=== PATIENT | female | born 1990 | race Caucasian/White ===

== ENCOUNTER → 2018-01-20 | Outpatient (REF) | payer OTHER | LOC: M SFHCWAGY 15:19 | DX: Z12.4 Encounter for screening for malignant neoplasm of cervix (principal) ==

== ENCOUNTER → 2018-06-21 | Outpatient (REF) | payer OTHER ==
[2018-06-21 16:27] LABS: FREE T4 1.02 NG/DL (0.76-1.46); THYROID STIMULATING HORMONE 2.94 uIU/ML (0.358-3.740)
[2018-06-21 16:28] LABS: LUTEINIZING HORMONE 8.6 mIU/mL
== END ==
LOC: M SFHCWAGY 14:28
PROVIDERS: ATTEND Nurse Practitioner Women's Health
DX: N91.2 Amenorrhea, unspecified (principal)

== ENCOUNTER → 2018-06-27 | Outpatient (CLI) | payer OTHER ==
--- NOTE | 2018-06-28 04:41 | REP ---
Clinical: Amenorrhea . Technique: Transabdominal pelvic ultrasound followed by transvaginal examination for better evaluation of the endometrium and adnexa. Findings: Bladder is unremarkable and measures 14.9 x 8.5 x 9.7 cm . Normal anteverted uterus measures 8.3 x 3.5 x 4.7 cm . The endometrial complex measures 9.0 mm thickness. No discrete uterine or endometrial abnormalities are appreciated. Bilateral ovaries are normal in appearance. Right ovary measures 2.9 x 2.0 x 1.8 cm ;Left ovary measures 3.5 x 2.0 x 2.7 cm . No pelvic fluid or adnexal mass lesion . Impression: 1. Normal pelvic ultrasound for
== END ==
LOC: M WHC 14:59
PROVIDERS: ATTEND Nurse Practitioner Women's Health
DX: N91.2 Amenorrhea, unspecified (principal)

== ENCOUNTER → 2018-08-08 | Outpatient (REF) | payer OTHER ==
[2018-08-08 16:37] LABS: ESTRADIOL 72.5 PG/ML; PROLACTIN 7.8 NG/ML
[2018-08-11 00:06] LABS: DEHYDROEPIANDROSTERONE SULFATE 200.7 ug/dL (84.8-378.0); TESTOSTERONE FREE (DIRECT) 1.9 pg/mL (0.0-4.2)
== END ==
LOC: M SFHCWAGY 12:30
PROVIDERS: ATTEND Nurse Practitioner Women's Health
DX: N91.1 Secondary amenorrhea (principal)

== ENCOUNTER → 2018-11-30 | Outpatient (CLI) | payer OTHER | LOC: M SMT 13:18 | PROVIDERS: ATTEND Obstetrics & Gynecology | DX: E28.2 Polycystic ovarian syndrome (principal) ==

== ENCOUNTER → 2019-02-04 | Outpatient (CLI) | payer OTHER | LOC: M WUC 09:21 | PROVIDERS: ATTEND Obstetrics & Gynecology | DX: N91.1 Secondary amenorrhea (principal) ==

== ENCOUNTER → 2019-04-27 | Outpatient (CLI) | payer OTHER | LOC: M WUC 16:39 | PROVIDERS: ATTEND Obstetrics & Gynecology | DX: O36.80X1 Pregnancy with inconclusive fetal viability, fetus 1 (principal) ==

== ENCOUNTER → 2019-04-29 | Outpatient (CLI) | payer OTHER | LOC: M WUC 16:06 | PROVIDERS: ATTEND Obstetrics & Gynecology | DX: O36.80X1 Pregnancy with inconclusive fetal viability, fetus 1 (principal); Z3A.00 Weeks of gestation of pregnancy not specified ==

== ENCOUNTER → 2019-05-16 | Outpatient (CLI) | payer OTHER | LOC: M WHC 11:26 | PROVIDERS: ATTEND Obstetrics & Gynecology | DX: Z53.9 Procedure and treatment not carried out, unspecified reason (principal); O36.80X0 Pregnancy with inconclusive fetal viability, not applicable or unspecified; Z3A.00 Weeks of gestation of pregnancy not specified ==

== ENCOUNTER → 2019-05-24 | Outpatient (CLI) | payer OTHER ==
[2019-05-24 18:00] LABS: BASO % 0.4 % (0.0-1.0); EOS # 0.1 10^3/uL (0.0-0.5); EOS % 0.8 % (0.0-3.0); HEMATOCRIT 40.2 % (36.0-47.0); HEMOGLOBIN 13.2 g/dl (12.0-15.5); LYMPH % 17.8 % (24.0-44.0); MEAN CORPUSCULAR HEMOGLOBIN 29.3 pg (27.0-33.0); MEAN CORPUSCULAR HGB CONC 32.8 g/dl (32.0-36.5); MEAN CORPUSCULAR VOLUME 89.1 fl (80.0-96.0); MONO # 0.8 10^3/uL (0.0-0.8); MONO % 6.9 % (0.0-5.0); NEUTROPHILS % 72.4 % (36.0-66.0); PLATELET COUNT, AUTOMATED 236 10^3/uL (150-450); RED BLOOD COUNT 4.51 10^6/uL (4.00-5.40); WHITE BLOOD COUNT 11.1 10^3/uL (4.0-10.0)
[2019-05-24 20:30] LABS: CHLAMYDIA DNA AMPLIFICATION NEGATIVE (NEGATIVE); GC DNA AMPLIFICATION NEGATIVE (NEGATIVE)
[2019-05-25 10:16] LABS: HEPATITIS C VIRUS ABY INDEX < 0.0 INDEX (<0.8); HIV 1&2 SCREEN CENTAUR NEGATIVE (NEGATIVE); RUBELLA IgG QUALITATIVE SUSCEPTIBLE (IMMUNE)
== END ==
LOC: M PLALAB 15:32
PROVIDERS: ATTEND Advanced Practice Midwife
DX: Z34.01 Encounter for supervision of normal first pregnancy, first trimester (principal)

== ENCOUNTER → 2019-06-07 | Outpatient (CLI) | payer OTHER ==
--- NOTE | 2019-06-07 16:58 | REP ---
Clinical: Anatomical evaluation. Comparison: None . Findings: Examination demonstrates a single live intrauterine in transverse (head to maternal left) presentation. motion is identified by technologist. Placenta is noted fundal and grade zero without evidence for placenta previa or abruption. Amniotic fluid volume is normal. Cervix measures 3.1 cm in length and appears closed. No evidence for nuchal cord. Gestational age by current measurements 20 weeks 1 day with ANA PAULA 10/24/2019 . FHR equals 160 beats per minute. BPD 4.7 cm 20 weeks 1 day HC 17.0 cm 19 weeks 4 days AC 15.1 cm 20 weeks 2 days FL 3.0 cm 19 weeks 2 days HL 3.1 cm 20 weeks 2 days HC/AC ratio 1.13 Estimated weight 316 grams ( 35th percentile). Anatomical assessment demonstrates normal structures including cranium, choroid plexus, cavum, cerebellum/posterior fossa, diaphragm, stomach, cord insertion/three-vessel cord, kidneys/bladder, and extremities. Limited evaluation of the facial features, heart/ventricular outflow tracts, and spine. Impression: 1. Single live intrauterine demonstrating appropriate estimated weight. 2. Anatomical limitations as noted above may warrant reevaluation and follow-up. No gross abnormality identified.
== END ==
LOC: M WHC 14:18
PROVIDERS: ATTEND Advanced Practice Midwife
DX: Z34.02 Encounter for supervision of normal first pregnancy, second trimester (principal); Z3A.00 Weeks of gestation of pregnancy not specified

== ENCOUNTER → 2019-06-28 | Outpatient (REF) | payer OTHER ==
[2019-06-28 12:29] LABS: HEMATOCRIT 39.2 % (36.0-47.0); HEMOGLOBIN 12.5 g/dl (12.0-15.5); MEAN CORPUSCULAR HEMOGLOBIN 29.3 pg (27.0-33.0); MEAN CORPUSCULAR HGB CONC 31.9 g/dl (32.0-36.5); PLATELET COUNT, AUTOMATED 207 10^3/uL (150-450); RED BLOOD COUNT 4.26 10^6/uL (4.00-5.40)
== END ==
LOC: M PLALAB 08:51
PROVIDERS: ATTEND Advanced Practice Midwife
DX: Z34.02 Encounter for supervision of normal first pregnancy, second trimester (principal)

== ENCOUNTER → 2019-06-28 | Outpatient (CLI) | payer OTHER ==
--- NOTE | 2019-06-28 10:53 | REP ---
OBSTETRIC SONOGRAPHY: HISTORY: Supervision of followup anatomy. Comparison obstetric sonography, June 07, 2019. FINDINGS: Scanning through the gravid uterus demonstrates a viable single intrauterine gestation in a cephalic lie. motion is observed, and heart rate is recorded at 149 beats per minute. The placenta is posterior, grade 1 without evidence of previa. Amniotic fluid is subjectively normal. Closed cervical length measured transabdominally is 3.4 cm. There has been appropriate interval growth. No abnormality is noted. Four-chamber heart and left ventricular and right ventricular cardiac outflow tract views are still less than optimally seen. The following additional anatomic structures are identified and felt to be unremarkable today: cranium, cerebellum and posterior fossa, nuchal fold, face and profile, diaphragm, left-sided stomach, abdominal wall cord insertion, three-vessel cord, kidneys and bladder, spine. BIOMETRY CHART: BPD 5.8 cm = 23 weeks 5 days Head circumference 21.1 cm = 23 weeks 1 day Abdominal circumference 18.8 cm = 23 weeks 4 days Femur length 4.1 cm = 23 weeks 2 days Humeral length 3.7 cm = 23 weeks 1 day HC/AC ratio normal 1.12 Cephalic index normal 0.77 Estimated weight 589 grams, 1 pound 4 ounces, 51st percentile for 23 weeks 1 day. IMPRESSION: Viable single intrauterine gestation at 23 weeks 0 days by today's composite sonographic criteria. Expected gestational age estimate based on prior sonography is 23 weeks 1 day. ANA PAULA by prior sonography, October 24, 2019. heart views still less than optimally achieved. There is evidence of appropriate interval growth.
== END ==
LOC: M WHC 07:56
PROVIDERS: ATTEND Advanced Practice Midwife
DX: Z34.02 Encounter for supervision of normal first pregnancy, second trimester (principal)

== ENCOUNTER → 2019-07-10 | Outpatient (CLI) | payer OTHER | LOC: M LAB 06:53 | PROVIDERS: ATTEND Obstetrics & Gynecology | DX: R73.02 Impaired glucose tolerance (oral) (principal) ==

== ENCOUNTER → 2019-07-18 | Outpatient (CLI) | payer OTHER | LOC: M WHC 13:38 | PROVIDERS: ATTEND Obstetrics & Gynecology | DX: Z34.02 Encounter for supervision of normal first pregnancy, second trimester (principal); Z53.9 Procedure and treatment not carried out, unspecified reason; Z3A.00 Weeks of gestation of pregnancy not specified ==

== ENCOUNTER → 2019-07-31 | Outpatient (CLI) | payer OTHER ==
--- NOTE | 2019-07-31 11:15 | REP ---
OB ULTRASOUND: Real-time sonographic evaluation of the gravid uterus performed. There is a single living intrauterine gestation. The estimated gestational age is 27 weeks 6 days with EDC 10/24/2019. Today's measurements indicate appropriate growth. Biometry and Growth: BPD 74 mm = 29 weeks 4 days, 84th percentile HC 262 mm = 28 weeks 4 days, 64th percentile AC 249 mm = 29 weeks 1 day, 74th percentile FL 51 mm = 27 weeks 2 days, 38th percentile HC/AC ratio 1.06 with normal range of 1.0 to 1.18. Estimated weight 1233 grams, 56th percentile. Visualized anatomy today includes the upper lip, four-chamber heart, stomach, three-vessel cord, kidneys, bladder and spine, which are all grossly unremarkable. Spine is only visualized sagittally. Ventricular outflow tracts are not well seen due to position. Cervical length: Closed and measures 3.9 cm in length. heart rate: 146 beats per minute. position: position is vertex. Placenta: Placenta is posterior and grade 1 with no previa or abruption. Amniotic fluid: Appears within normal limits.
== END ==
LOC: M WHC 09:27
PROVIDERS: ATTEND Obstetrics & Gynecology
DX: Z34.02 Encounter for supervision of normal first pregnancy, second trimester (principal); Z3A.27 27 weeks gestation of pregnancy

== ENCOUNTER → 2019-08-22 | Outpatient (CLI) | payer OTHER | LOC: M WHC 07:39 | PROVIDERS: ATTEND Advanced Practice Midwife | DX: Z34.03 Encounter for supervision of normal first pregnancy, third trimester (principal); Z53.9 Procedure and treatment not carried out, unspecified reason ==

== ENCOUNTER → 2019-08-28 | Outpatient (CLI) | payer OTHER ==
--- NOTE | 2019-08-29 07:21 | REP ---
Clinical: Anatomical evaluation. Comparison: 07/31/2019 . Findings: Examination demonstrates a single live intrauterine in cephalic presentation. motion is identified by technologist. Placenta is noted posterior and grade I without evidence for placenta previa or abruption. Amniotic fluid volume is normal. No evidence for nuchal cord. Gestational age by LMP 31 weeks 6 days with ANA PAULA 10/24/2019 . Gestational age by current measurements 32 weeks 5 days with ANA PAULA 10/17/2019 . FHR equals 139 beats per minute. Estimated weight 2237 grams ( 80th percentile). Anatomical assessment demonstrates normal structures including cranium, facial features, diaphragm, stomach, three-vessel cord, and bladder. Continued limited evaluation of the heart/ventricular outflow tracts. Impression: Single live advanced gestation in cephalic presentation demonstrating appropriate interval growth. Continued limited evaluation of the heart/ventricular outflow tracts. In conjunction with prior examination remainder of the anatomical assessment appears normal.
== END ==
LOC: M WHC 15:22
PROVIDERS: ATTEND Advanced Practice Midwife
DX: Z34.03 Encounter for supervision of normal first pregnancy, third trimester (principal)

== ENCOUNTER → 2019-08-29 | Outpatient (CLI) | payer OTHER | LOC: M WHC 08:21 | PROVIDERS: ATTEND Advanced Practice Midwife | DX: Z34.03 Encounter for supervision of normal first pregnancy, third trimester (principal) ==

== ENCOUNTER → 2019-09-21 | Outpatient (REF) | payer OTHER | LOC: M PLALAB 11:17 | PROVIDERS: ATTEND Advanced Practice Midwife | DX: Z34.03 Encounter for supervision of normal first pregnancy, third trimester (principal); Z36.85 Encounter for antenatal screening for Streptococcus B; Z36.89 Encounter for other specified antenatal screening ==

== ENCOUNTER 2019-10-10 18:13 | Inpatient (IN) | payer OTHER ==
[~2019-10-10] VITALS: Ht 162.6 cm; Wt 95.8 kg
[~2019-10-10 18:13] MED LIST: PRENTAB7 PO
[2019-10-10 19:13] LABS: HEMATOCRIT 37.4 % (36.0-47.0); HEMOGLOBIN 12.3 g/dl (12.0-15.5); MEAN CORPUSCULAR HEMOGLOBIN 30.4 pg (27.0-33.0); MEAN CORPUSCULAR HGB CONC 32.9 g/dl (32.0-36.5); MEAN CORPUSCULAR VOLUME 92.3 fl (80.0-96.0); PLATELET COUNT, AUTOMATED 186 10^3/uL (150-450); RED BLOOD COUNT 4.05 10^6/uL (4.00-5.40); WHITE BLOOD COUNT 9.6 10^3/uL (4.0-10.0)
[2019-10-10] MEDS ORDERED: FIORICET TAB PO ONE (19:15)
[2019-10-10 19:47] LABS: ALT/SGPT 13 U/L (12-78); BILIRUBIN,TOTAL 0.3 MG/DL (0.2-1.0); GLOMERULAR FILTRATION RATE > 60.0 (>60); LDH LACTATE DEHYDROGENASE 264 U/L (84-246); URIC ACID 6.2 MG/DL (2.6-6.0)
[2019-10-10] MEDS ORDERED: BICITRA 30ML SOLN UDC PO ONE (20:30)
[2019-10-10] MEDS ORDERED: LR 1,000 ML IV SCH ×2 (20:30→23:45)
[2019-10-10] MEDS ORDERED: ceFAZolin SOD 2 GM in IV 1 EA IV ONE (20:30)
[2019-10-10] MEDS ORDERED: LACTATED RINGER'S 1000 ML IV STA (20:30)
[2019-10-10] MEDS ORDERED: LABETALOL 100MG/20ML VIAL IV STA (21:23)
--- NOTE | 2019-10-10 21:40 | HPEPDOC ---
Obstetrical History & Physical General Date of Admission Oct 10, 2019 at 20:00 Primary Care Physician: MIKAYLA HAYDEN CNM History of Present Illness Patient is a 29-year-old female who is a at 38.2 weeks gestation with an ANA PAULA of 10/22/19 based off of her LMP and consistent with her first trimester ultr asound. she initiated care in her first trimester with [facility]. Her has been uncomplicated. She presented to L&D with complaints of a severe headache, blurred vision with difficulty seeing, nausea, vomiting, and extreme swelling in her face, legs, and feet. She reports she increased her fluid intake and took 2 extra strength Tylenol with no relief. She reports active movement. She denies leaking of fluid, vaginal bleeding, or contractions. Chief Complaint: Pre-eclamsia Information Provided By: Patient Age: 29 : 1 Term: 0 Pre-term: 0 Abortions: 0 Livin Care Care: Good Care Dating Final EDC: Oct 22, 2019 Final EDC by: LMP LMP: Jan 15, 2019 EGA at Admission: 38.2 Antepartum Course Diagnos(e)s Preeclampsia with severe features breech presentation Height (inches): 64 Pre- weight (lbs.): 170 Admission Weight (lbs.): 211 Change in Weight (lbs.): 41 Past Medical History Past Obstetrical History : Past Obstetrical History: [employer] History: Other (irregular cycles and infertility (was taking letrazole but conceived spontaneously)) Past Medical History Medical History overweight and obesity with Surgical History: Framingham teeth Family History Significant Family History: Cancer (breast cancer) Social History Social history 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 BREAST: . ABDOMEN: Gravid and non-tender to touch. FETUS: Fetus is breech by bedside ultrasound. HEART RATE: Regular rate and rhythm. LUNGS: Clear to auscultation (CTA). EXTREMITIES: 2-3+ pitting edema in her feet, ankles, and legs. Appears to have clonus in her left hand. Deep tendon reflexes (DTRs) + 3. Laboratory Data 24H LABS Laboratory Tests 2 10/10/19 19:07: Nucleated Red Blood Cells % (auto) 0.2H, Glomerular Filtration Rate > 60.0, Uric Acid 6.2H, Total Bilirubin 0.3, Aspartate Amino Transf (AST/SGOT) 18, Alanine Aminotransferase (ALT/SGPT) 13, Lactate Dehydrogenase 264H 10/10/19 20:04: Serology Scanned Report Hepatitis B Testing 10/10/19 20:51: Item Value Date Time Urine Random Creatinine 232.0 MG/DL 10/10/192050 Urine Random Total Protein 4012.0 MG/DL H 10/10/192050 CBC/BMP Laboratory Tests 10/10/19 19:07 Urine Culture: No Growth Pertinent Laboratoy Data Blood Type: O+ HIV: Negative Hepatitis B: Negative Hepatitis C: Negative Rapid Plasma Reagin: Nonreactive Rubella: Nonreactive Chlamydia/Gonorrhea: Negative Group B Streptococcus: Negative Glucose Tolerance Test: 136 Assessment Heart Rate (FHR): 140 Variability: Moderate Accelerations: Positive Tocometer Contractions: Yes Frequency: irregular Multi-drug resistant Organism: No history of MDRO Assessment/Plan Assessment IUP at 38.2 preeclampsia with severe features Category I FHR tracing breech presentation Plan Admit to L&D. Dr. Castillo consulted on plan of care. Diet: NPO. Group B Streptococcus (GBS) negative. Labs and intravenous (IV) per unit protocol. Given patient's severe range blood pressures, labs with a spot urine of almost 18, preeclamptic symptoms and persistent breech presentation, Dr. Castillo recommends a primary section. Risks, benefits, and alternatives were discussed and patient and desire to proceed with the section. Anesthesia notified. Neonatology notified. Lactated Ringers (LR): Bolus 500 mL, then at 125 mL/hr. Ancef 2 grams ordered for prophylactic measures. Bicitra ordered PO. IV Labetalol 20 mg IV ordered stat. Proceed with section and then after hysterotomy is closed anticipate to start a 4 gram loading dose of Mag then 2 grams an hour. MIKAYLA HAYDEN CNM Oct 10, 2019 21:40
[2019-10-10] MEDS ORDERED: NALOXONE INJ 0.4MG/1ML VIAL (J2310 PER 1MG) IV PRN ×2 (21:46)
[2019-10-10] MEDS ORDERED: ONDANSETRON 4MG/2ML VIAL IV PRN ×3 (21:46→23:45)
[2019-10-10] MEDS ORDERED: METOCLOPRAMIDE INJ 10MG/2ML VIAL (J2765 PER 1) IV PRN ×2 (21:46→23:45)
[2019-10-10] MEDS ORDERED: diphenhydrAMINE 50MG/ML VIAL (J1200) IV PRN (21:46)
[2019-10-10] MEDS ORDERED: NALBUPHINE HCL 10 MG/ML AMP (J2300) IV PRN (21:46)
[2019-10-10] MEDS ORDERED: OXYTOCIN INJ 10 UNITS/ML VIAL (J2590) As Ordered ONE (21:59)
[2019-10-10] MEDS ORDERED: MORPHINE PRES-FREE INJ 10 MG/10 ML VIAL (J2274) As Ordered ONE (21:59)
[2019-10-10] MEDS ORDERED: ONDANSETRON 4MG/2ML VIAL As Ordered ONE (22:09)
[2019-10-10] MEDS ORDERED: MAGNESIUM *L&D* 4GM/100ML BAG (40MG/ML) As Ordered ONE (22:20)
[2019-10-10] MEDS ORDERED: MAGNESIUM SULFATE 4% INJ 20GM/500ML (40MG/ML) As Ordered ONE (22:20)
[2019-10-10] MEDS ORDERED: KETOROLAC 60MG 2ML VIAL As Ordered ONE (22:21)
[2019-10-10] MEDS ORDERED: OXYTOCIN DRIP 30 UNITS in IV 1 EA IV SCH (22:42)
[2019-10-10] MEDS: LR 1,000 ML IV SCH (22:42)
[2019-10-10] MEDS ORDERED: MAGNESIUM *L&D* 4GM/100ML BAG (40MG/ML) IV ONE (22:45)
[2019-10-10] MEDS ORDERED: MEASLES,MUMPS,RUBELLA VACCINE INJ (MMR-II) (90707) SC SCH (22:45)
[2019-10-10] MEDS ORDERED: PERCOCET 5MG/325MG TAB PO PRN ×3 (22:45→23:45)
[2019-10-10] MEDS: MAG Sulf (OBGYN) 20GM/500ML 20,000 MG in IV 1 EA IV SCH (22:45)
[2019-10-10] MEDS ORDERED: RHOGAM 300 MCG (1500 IU) INJ (J2790) IM SCH (22:45)
[2019-10-10] MEDS ORDERED: fentaNYL 100 MCG/2 ML INJECTION (J3010) IV PRN (23:45)
[2019-10-11] VITALS (22 sets, daily range): BP systolic 117–180; BP diastolic 62–101
[2019-10-11] MEDS: KETOROLAC 30 MG/ML 1ML VIAL IV SCH ×3 (04:59→17:22)
[2019-10-11 06:30] LABS: HEMATOCRIT 30.3 % (36.0-47.0); HEMOGLOBIN 10.1 g/dl (12.0-15.5); MEAN CORPUSCULAR HEMOGLOBIN 31.4 pg (27.0-33.0); MEAN CORPUSCULAR HGB CONC 33.3 g/dl (32.0-36.5); MEAN CORPUSCULAR VOLUME 94.1 fl (80.0-96.0); PLATELET COUNT, AUTOMATED 160 10^3/uL (150-450); RED BLOOD COUNT 3.22 10^6/uL (4.00-5.40); WHITE BLOOD COUNT 15.1 10^3/uL (4.0-10.0)
[2019-10-11 06:57] LABS: ALT/SGPT 15 U/L (12-78); BILIRUBIN,TOTAL 0.1 MG/DL (0.2-1.0); CREATININE FOR GFR 0.93 MG/DL (0.55-1.30); GLOMERULAR FILTRATION RATE > 60.0 (>60); LDH LACTATE DEHYDROGENASE 324 U/L (84-246); URIC ACID 6.5 MG/DL (2.6-6.0)
[2019-10-11] MEDS: MAG Sulf (OBGYN) 20GM/500ML 20,000 MG in IV 1 EA IV SCH ×2 (09:00→19:00)
[2019-10-11] MEDS: DOCUSATE SODIUM 100MG CAPSULE PO SCH ×2 (10:41→20:42)
[2019-10-11] MEDS: PRENATAL VITAMINS CHEWABLE TABLET PO SCH (10:41)
[2019-10-11] MEDS ORDERED: KETOROLAC 30 MG/ML 1ML VIAL As Ordered ONE (17:19)
[2019-10-11] MEDS: LR 1,000 ML IV SCH (19:00)
[2019-10-12] VITALS (14 sets, daily range): BP systolic 132–163; BP diastolic 69–97
[2019-10-12] MEDS: IBUPROFEN 800 MG TAB PO SCH ×3 (00:45→15:45)
[2019-10-12] MEDS: PRENATAL VITAMINS CHEWABLE TABLET PO SCH (09:31)
[2019-10-12] MEDS: DOCUSATE SODIUM 100MG CAPSULE PO SCH ×2 (09:32→21:28)
[2019-10-12] MEDS ORDERED: LABETALOL 100MG/20ML VIAL IV STA (14:29)
[2019-10-12] MEDS: LABETALOL 200 MG TAB PO SCH ×2 (15:45→21:29)
[2019-10-13] MEDS: IBUPROFEN 800 MG TAB PO SCH ×2 (00:42→09:07)
[2019-10-13 02:00] VITALS: BP 169/94
[2019-10-13 06:00] VITALS: BP 139/93
[2019-10-13] MEDS: PRENATAL VITAMINS CHEWABLE TABLET PO SCH (09:06)
[2019-10-13] MEDS: DOCUSATE SODIUM 100MG CAPSULE PO SCH (09:06)
[2019-10-13 09:07] VITALS: BP 156/96
[2019-10-13] MEDS: LABETALOL 200 MG TAB PO SCH (09:07)
[2019-10-13] MEDS ORDERED: OXYC1TAB23 PO (12:38)
[2019-10-13] MEDS ORDERED: IBUP80TA PO (12:39)
[2019-10-13] MEDS ORDERED: LABE20TAB PO (12:40)
--- NOTE | 2019-10-16 17:17 | DSES ---
DATE OF ADMISSION: 10/10/2019 DATE OF DISCHARGE: 10/13/2019 29-year-old, (G) 1, para (P) 0 female, at 38-2/7 weeks gestation presented to the office with severe headaches and elevated blood pressures. She was diagnosed with preeclampsia at that time. She had fetus in known breech presentation. She was sent to the hospital for evaluation and management. HOSPITAL COURSE: On 10/10/2019, the patient underwent primary section for an 8 pound 3 ounce in the breech presentation. The surgery was unremarkable. She had adequate return of bladder and bowel function. She still had elevated blood pressures postoperatively. She was started on labetalol 200 mg twice a day to help manage blood pressures. Postoperative hemoglobin was 10.1 grams g/dL. She was deemed stable for discharge on post-op day #3. ADMISSION DIAGNOSIS: at 38 weeks, breech, preeclampsia. DISCHARGE DIAGNOSIS: Delivered. PROCEDURE: Primary section. DISPOSITION: Patient will followup with Dr. Castillo in 2 weeks. Instructions reviewed.
== END 2019-10-13 14:20 | disposition home or self-care (01) | DRG 788 ==
LOC: M LDO 18:13 → M LDI 20:00 → M OBS 10-12 09:07
PROVIDERS: ADMIT Advanced Practice Midwife; ATTEND Advanced Practice Midwife
PROC: 10D00Z1 Extraction of Products of Conception, Low, Open Approach (ICD-10-PCS; principal; 2019-10-10 21:21)
DX: O14.24 HELLP syndrome, complicating childbirth (principal); Z37.0 Single live birth; Z3A.38 38 weeks gestation of pregnancy; E66.9 Obesity, unspecified; O99.214 Obesity complicating childbirth; O32.1XX0 Maternal care for breech presentation, not applicable or unspecified

== ENCOUNTER → 2020-11-12 | Outpatient (CLI) | payer OTHER ==
[~2020-11-12] MED LIST changes: +IBUP80TA PO; +LABE20TAB PO; +OXYC1TAB23 PO
== END ==
LOC: M PLALAB 15:07
PROVIDERS: ATTEND Obstetrics & Gynecology
DX: O36.80X0 Pregnancy with inconclusive fetal viability, not applicable or unspecified (principal); Z3A.00 Weeks of gestation of pregnancy not specified

== ENCOUNTER → 2020-12-10 | Outpatient (CLI) | payer OTHER ==
[2020-12-10 18:13] LABS: HEMATOCRIT 43.1 % (36.0-47.0); MEAN CORPUSCULAR HGB CONC 32.5 g/dl (32.0-36.5); MEAN CORPUSCULAR VOLUME 89.4 fl (80.0-96.0); PLATELET COUNT, AUTOMATED 249 10^3/uL (150-450); RED BLOOD COUNT 4.82 10^6/uL (4.00-5.40); WHITE BLOOD COUNT 9.2 10^3/uL (4.0-10.0)
[2020-12-10 18:47] LABS: ALT/SGPT 20 U/L (12-78); BILIRUBIN,TOTAL 0.3 MG/DL (0.2-1.0); CREATININE FOR GFR 0.68 MG/DL (0.55-1.30); GLOMERULAR FILTRATION RATE > 60.0 (>60); LDH LACTATE DEHYDROGENASE 150 U/L (84-246); URIC ACID 3.2 MG/DL (2.6-6.0)
[2020-12-10 18:52] LABS: TOTAL PROTEIN,RANDOM URINE 19.9 MG/DL (0.0-12.0)
[2020-12-10 19:25] LABS: HEPATITIS C VIRUS ABY INDEX < 0.0 INDEX (<0.8); HIV 1&2 SCREEN CENTAUR NEGATIVE (NEGATIVE)
[2020-12-10 20:31] LABS: GC DNA AMPLIFICATION NEGATIVE (NEGATIVE)
== END ==
LOC: M PLALAB 14:23
PROVIDERS: ATTEND Advanced Practice Midwife
DX: O34.211 Maternal care for low transverse scar from previous cesarean delivery (principal)

== ENCOUNTER → 2021-02-16 | Outpatient (CLI) | payer OTHER ==
--- NOTE | 2021-02-16 18:37 | REP ---
INDICATION: ANATOMY. COMPARISON: None. TECHNIQUE: Real-time sonographic evaluation of the gravid uterus performed. FINDINGS: Estimated gestational age is19 weeks 5 days, EDC 07/08/2021. Today's measurements indicate appropriate growth. Presentation: Cephalic Placenta posterior, grade 1, without evidence of placenta previa. heart rate is recorded at 150 beats per minute. Amniotic fluid is subjectively normal. Closed cervical length is measured at 4.7 cm. Biometry chart: BPD: 47 mm, 20 weeks 0 days, 59th percentile. HC: 175 mm, 20 weeks 0 days, 58th percentile AC: 146 mm, 19 weeks 6 days, 53rd percentile Femur length: 31 mm, 19 weeks 4 days, 47th percentile HC to AC ratio: 1.20, normal range 1.06-1.25. Estimated weight: 313g, 50th percentile. anatomy: Cranium: Grossly normal Lateral Ventricles/Choroid Plexus: Grossly normal Posterior Fossa/Cerebellum: Grossly normal Nose/lips/profile: Nose and lips not well seen. Four chamber heart: Not well visualized. Right ventricular outflow tract: Not well visualized. Left ventricular outflow tract: Not well visualized. Left-sided stomach: Grossly normal Kidneys: Grossly normal Bladder: Grossly normal Cord Insertion: Grossly normal 3 vessel cord: Grossly normal Spine: Grossly normal IMPRESSION: Viable single intrauterine gestation as above. <Electronically signed by Jose Maria Valencia > 02/16/21 2005
== END ==
LOC: M WHC 15:25
PROVIDERS: ATTEND Specialist
DX: Z34.82 Encounter for supervision of other normal pregnancy, second trimester (principal); Z3A.19 19 weeks gestation of pregnancy

== ENCOUNTER → 2021-03-31 | Outpatient (CLI) | payer OTHER ==
--- NOTE | 2021-03-31 16:32 | REP ---
INDICATION: HX OF PRECLAMPSIA IN PRIOR PREG,CURRENTLY PREG IN 2ND TRI COMPARISON: 02/16/2021 TECHNIQUE: Transabdominal obstetrical ultrasound with color Doppler evaluation. FINDINGS: Examination demonstrates a single live intrauterine in breech presentation. motion is identified by technologist. Placenta is noted posterior/right lateral and grade 1 without evidence for placenta previa or abruption. Amniotic fluid volume is normal. Cervix measures 4.3 cm in length and appears closed.. Selected gestational age: 25 weeks 6 days with ANA PAULA 07/08/2021. Gestational age by current measurements 26 weeks 5 days with ANA PAULA 07/02/2021. FHR equals 153 beats per minute. Estimated weight 982 grams (78thpercentile). Anatomical assessment demonstrates normal structures including facial features (orbits, nose, lips). IMPRESSION: 1. Single live intrauterine in breech presentation demonstrating appropriate interval growth and estimated weight. 2. Continued limited evaluation of the heart/ventricular outflow tracts. Facial features appear normal on current exam. <Electronically signed by Royer Hutson > 03/31/21 [id number]
== END ==
LOC: M WHC 15:02
PROVIDERS: ATTEND Advanced Practice Midwife
DX: O09.292 Supervision of pregnancy with other poor reproductive or obstetric history, second trimester (principal)

== ENCOUNTER → 2021-04-06 | Outpatient (CLI) | payer OTHER ==
[2021-04-06 11:55] LABS: HEMATOCRIT 37.9 % (36.0-47.0); MEAN CORPUSCULAR HEMOGLOBIN 30.1 pg (27.0-33.0); MEAN CORPUSCULAR HGB CONC 31.7 g/dl (32.0-36.5); PLATELET COUNT, AUTOMATED 211 10^3/uL (150-450); RED BLOOD COUNT 3.99 10^6/uL (4.00-5.40); WHITE BLOOD COUNT 8.1 10^3/uL (4.0-10.0)
== END ==
LOC: M PLALAB 09:16
PROVIDERS: ATTEND Advanced Practice Midwife
DX: O09.292 Supervision of pregnancy with other poor reproductive or obstetric history, second trimester (principal); Z3A.00 Weeks of gestation of pregnancy not specified

== ENCOUNTER → 2021-04-16 | Outpatient (CLI) | payer OTHER ==
--- NOTE | 2021-04-16 15:54 | REP ---
INDICATION: REPEAT, LOW TRANSV UTERINE SCAR FROM PREVIOUS CSEC COMPARISON: 03/31/2021 TECHNIQUE: Transabdominal obstetrical ultrasound with color Doppler evaluation. FINDINGS: Examination demonstrates a single live intrauterine in breech presentation. motion is identified by technologist. Placenta is noted posterior/right lateral and grade 1 without evidence for placenta previa or abruption. Amniotic fluid volume is normal. Cervix measures 3.7 cm in length and appears closed. Uterine scarring was not evaluated. Selected gestational age: 28 weeks 1 day with ANA PAULA 07/08/2021. Gestational age by current measurements 29 weeks 2 days with ANA PAULA 06/30/2021. FHR equals 147 beats per minute. Estimated weight 1371 grams (80thpercentile). DAE: 18.0 cm Anatomical assessment demonstrates normal structures including cranium, choroid plexus, cavum, cerebellum/posterior fossa, facial features, lungs, diaphragm, stomach, cord insertion/three-vessel cord, kidneys/bladder, spine, and extremities. IMPRESSION: Single live intrauterine in breech presentation demonstrating appropriate interval growth. In conjunction with prior examination anatomical assessment is complete and normal. <Electronically signed by Royer Hutson > 04/16/21 [id number]
== END ==
LOC: M WHC 14:37
PROVIDERS: ATTEND Advanced Practice Midwife
DX: O34.211 Maternal care for low transverse scar from previous cesarean delivery (principal); Z3A.29 29 weeks gestation of pregnancy

== ENCOUNTER → 2021-05-01 | Outpatient (CLI) | payer OTHER | LOC: M LAB 07:07 | PROVIDERS: ATTEND Advanced Practice Midwife | DX: O99.810 Abnormal glucose complicating pregnancy (principal); Z3A.00 Weeks of gestation of pregnancy not specified ==

== ENCOUNTER → 2021-06-05 | Outpatient (REF) | payer OTHER | LOC: M SFHCWAGY 09:57 | PROVIDERS: ATTEND Advanced Practice Midwife | DX: O34.211 Maternal care for low transverse scar from previous cesarean delivery (principal) ==

== ENCOUNTER → 2021-06-16 | Outpatient (CLI) | payer OTHER ==
[~2021-06-16] MED LIST changes: +BAYE81TA10 PO
== END ==
LOC: M WHC 11:21
PROVIDERS: ATTEND Advanced Practice Midwife
DX: O24.419 Gestational diabetes mellitus in pregnancy, unspecified control (principal); Z3A.36 36 weeks gestation of pregnancy

== ENCOUNTER → 2021-06-27 | Outpatient (CLI) | payer OTHER | LOC: M LABSMTC 09:55 | PROVIDERS: ATTEND Anesthesiology | DX: Z01.812 Encounter for preprocedural laboratory examination (principal); Z20.822 Contact with and (suspected) exposure to COVID-19 ==

== ENCOUNTER → 2021-10-19 | Outpatient (REF) | payer OTHER ==
[~2021-10-19] MED LIST changes: +COLA100C5 PO; +PERCOCET PO
== END ==
LOC: M SFHCWAGY 16:47
PROVIDERS: ATTEND Obstetrics & Gynecology
DX: Z12.4 Encounter for screening for malignant neoplasm of cervix (principal); Z01.419 Encounter for gynecological examination (general) (routine) without abnormal findings; Z77.9 Other contact with and (suspected) exposures hazardous to health

== ENCOUNTER → 2024-07-04 | Outpatient (REF) | payer OTHER, BC ==
[2024-07-04 16:20] LABS: TOTAL PROTEIN,RANDOM URINE 11.8 MG/DL (0.0-14.0)
[2024-07-04 16:25] LABS: CREATININE,RANDOM URINE 197.4 MG/DL
[2024-07-04 18:13] LABS: GC DNA AMPLIFICATION NEGATIVE (NEGATIVE)
[2024-07-06 14:11] LABS: Trichomonas vaginalis (AMP) NOT DETECTED (NEGATIVE)
== END ==
LOC: M PLALAB 14:20
PROVIDERS: ATTEND Nurse Practitioner Family
DX: Z34.81 Encounter for supervision of other normal pregnancy, first trimester (principal); Z87.59 Personal history of other complications of pregnancy, childbirth and the puerperium

== ENCOUNTER → 2024-07-18 | Outpatient (CLI) | payer OTHER, BC ==
[2024-07-18 17:40] LABS: HEMATOCRIT 37.8 % (36.0-47.0); HEMOGLOBIN 12.4 g/dl (12.0-15.5); MEAN CORPUSCULAR HEMOGLOBIN 27.3 pg (27.0-33.0); MEAN CORPUSCULAR HGB CONC 32.8 g/dl (32.0-36.5); MEAN CORPUSCULAR VOLUME 83.1 fl (80.0-96.0); PLATELET COUNT, AUTOMATED 169 10^3/uL (150-450); RED BLOOD COUNT 4.55 10^6/uL (4.00-5.40); WHITE BLOOD COUNT 4.4 10^3/uL (4.0-10.0)
[2024-07-18 17:56] LABS: HEMOGLOBIN A1c 5.1 % (4.0-6.0)
[2024-07-18 18:06] LABS: URIC ACID 4.1 MG/DL (3.1-7.8)
[2024-07-18 18:08] LABS: LDH LACTATE DEHYDROGENASE 216 U/L (120-246)
[2024-07-18 18:09] LABS: ALT/SGPT 51 U/L (7.0-40); AST/SGOT 27 U/L (<34); BILIRUBIN,TOTAL 0.4 MG/DL (0.3-1.2); CREATININE FOR GFR 0.78 MG/DL (0.55-1.30); GLOMERULAR FILTRATION RATE > 60.0 (>60); GLUCOSE CHALLENGE TEST 1 HOUR 109 MG/DL (LESS THAN 140)
[2024-07-18 18:42] LABS: HIV 1&2 SCREEN NEGATIVE (NEGATIVE)
[2024-07-18 18:50] LABS: HEPATITIS C VIRUS ABY INDEX 0.03 INDEX (<0.8)
== END ==
LOC: M PLALAB 14:18
PROVIDERS: ATTEND Nurse Practitioner Family
DX: Z34.81 Encounter for supervision of other normal pregnancy, first trimester (principal)

== ENCOUNTER → 2024-09-03 | Outpatient (CLI) | payer OTHER, BC | LOC: M WHC 14:43 | PROVIDERS: ATTEND Nurse Practitioner Family | DX: O28.3 Abnormal ultrasonic finding on antenatal screening of mother (principal); Z3A.19 19 weeks gestation of pregnancy; O32.1XX0 Maternal care for breech presentation, not applicable or unspecified ==

== ENCOUNTER → 2024-11-01 | Outpatient (CLI) | payer OTHER, BC ==
[2024-11-01 17:17] LABS: PLATELET COUNT, AUTOMATED 186 10^3/uL (150-450)
[2024-11-01 17:35] LABS: GLUCOSE CHALLENGE TEST 1 HOUR 128 MG/DL (LESS THAN 140)
[2024-11-01 18:06] LABS: HIV 1&2 SCREEN NEGATIVE (NEGATIVE)
[2024-11-01 18:14] LABS: Trichomonas vaginalis (AMP) NOT DETECTED (NEGATIVE)
[2024-11-01 18:14] LABS: HEPATITIS C VIRUS ABY INDEX 0.10 INDEX (<0.8)
[2024-11-01 18:37] LABS: GC DNA AMPLIFICATION NEGATIVE (NEGATIVE)
== END ==
LOC: M PLALAB 14:35
PROVIDERS: ATTEND Obstetrics & Gynecology
DX: Z34.82 Encounter for supervision of other normal pregnancy, second trimester (principal)

== ENCOUNTER → 2024-12-28 | Outpatient (REF) | payer OTHER, BC | LOC: M SFHCWAGY 17:00 | PROVIDERS: ATTEND Advanced Practice Midwife | DX: O34.211 Maternal care for low transverse scar from previous cesarean delivery (principal) ==

== ENCOUNTER 2025-01-18 05:31 | Inpatient (IN) | payer OTHER, BC ==
[2025-01-18] VITALS (11 sets, daily range): BP systolic 117–155; BP diastolic 62–89; TEMP 97.4; O2SAT 97–99
[~2025-01-18] VITALS: Ht 162.6 cm; Wt 88.3 kg
[2025-01-18] MEDS: LACTATED RINGER'S 1000 ML IV STA (05:42)
[2025-01-18] MEDS: BICITRA 30 ML SOLN UDC PO ONE (05:45)
[2025-01-18 06:30] LABS: PLATELET COUNT, AUTOMATED 200 10^3/uL (150-450)
[2025-01-18] MEDS ORDERED: MORPHINE PRES-FREE INJ 10 MG/10 ML VIAL As Ordered ONE (07:08)
[2025-01-18] MEDS: LR 1,000 ML IV SCH (07:17)
[2025-01-18] MEDS: ceFAZolin SODIUM 2 GM in DEXTROSE 5% (D5W) ADV/MINI-BAG 50 ML IV ONE (07:17)
[2025-01-18 07:33] LABS: HIV 1&2 SCREEN NEGATIVE (NEGATIVE)
[2025-01-18 07:40] LABS: HEPATITIS C VIRUS ABY INDEX 0.02 INDEX (<0.8)
[2025-01-18] MEDS ORDERED: CALCIUM CARBONATE 500 MG CHEW U/D PO PRN (08:55)
[2025-01-18] MEDS ORDERED: METHYLERGONOVINE MALEATE 0.2 MG/ML 1 ML VIAL IM PRN (08:55)
[2025-01-18] MEDS ORDERED: SIMETHICONE 80MG CHEW TAB PO PRN (08:55)
[2025-01-18] MEDS ORDERED: ANUSOL HC CREAM 30 GM TOP PRN (08:55)
[2025-01-18] MEDS ORDERED: ONDANSETRON 4MG 2ML VIAL IV PRN ×2 (08:55→09:20)
[2025-01-18] MEDS ORDERED: MORPHINE 4 MG/ML 1 ML VIAL IV PRN (08:55)
[2025-01-18] MEDS: DOCUSATE SODIUM 100 MG CAPSULE PO SCH (09:00)
[2025-01-18] MEDS: PRENATAL VITAMINS CHEWABLE TABLET PO SCH (09:00)
[2025-01-18] MEDS: OXYTOCIN DRIP 30 UNITS in IV 1 EA IV SCH (09:05)
[2025-01-18] MEDS ORDERED: NALOXONE INJ 0.4 MG/1 ML VIAL IV PRN ×2 (09:20)
[2025-01-18] MEDS ORDERED: HYDROMORPHONE HCL 0.5 MG/0.5 ML SYRINGE IV PRN (09:20)
[2025-01-18] MEDS ORDERED: diphenhydrAMINE 50 MG/ML VIAL IV PRN (09:20)
[2025-01-18] MEDS: SLF 3 ML SYR IV SCH (09:20)
[2025-01-18] MEDS ORDERED: **NOTE PATIENT COMMENT** MISC XX SCH (09:20)
[2025-01-18] MEDS: KETOROLAC 30 MG/ML 1 ML VIAL IV SCH (09:34)
[2025-01-18] MEDS: RHOGAM 300MCG (1500IU) INJ IM SCH (12:16)
[2025-01-19 01:42] VITALS: BP 121/69; O2SAT 98
[2025-01-19 05:56] VITALS: BP 119/67; O2SAT 98
[2025-01-19] MEDS: ACETAMINOPHEN 500 MG TAB PO PRN (08:24)
[2025-01-19 08:39] LABS: PLATELET COUNT, AUTOMATED 183 10^3/uL (150-450)
[2025-01-19 10:00] VITALS: BP 122/64; O2SAT 97
[2025-01-19] MEDS: MEASLES,MUMPS,RUBELLA VACCINE INJ (MMR-II) SC.IMMUN ONE (10:12)
[2025-01-19] MEDS: IBUPROFEN 800 MG TAB PO SCH (10:49)
[2025-01-19] MEDS: FERROUS SULFATE 325 MG TAB PO SCH (11:07)
[2025-01-19 14:00] VITALS: BP 127/66; O2SAT 98
[2025-01-19 17:38] VITALS: BP 138/72; O2SAT 99
[2025-01-19 22:00] VITALS: BP 126/66; O2SAT 98
[2025-01-19] MEDS: PERCOCET 5MG/325MG TAB PO PRN (22:50)
[2025-01-20 02:45] VITALS: BP 116/82; O2SAT 98
[2025-01-20 06:06] VITALS: BP 113/64; O2SAT 97
[2025-01-20] MEDS: PERCOCET 5MG/325MG TAB PO PRN (09:30)
== END 2025-01-20 14:50 | disposition home or self-care (01) | DRG 807 ==
LOC: M LDI 05:31 → M OBS 10:36
PROVIDERS: ADMIT Obstetrics & Gynecology; ATTEND Obstetrics & Gynecology
PROC: 10E0XZZ Delivery of Products of Conception, External Approach (ICD-10-PCS; principal; 2025-01-18)
DX: O34.211 Maternal care for low transverse scar from previous cesarean delivery (principal); Z37.0 Single live birth; Z3A.39 39 weeks gestation of pregnancy